=== PATIENT | male | born 1950 | race Caucasian/White ===

== ENCOUNTER 2019-06-27 09:56 | Inpatient (IN) | payer MEDICARE, MEDICAID ==
[~2019-06-27] VITALS: Ht 157.5 cm; Wt 83.9 kg
[2019-06-27] MEDS ORDERED: FAMOTIDINE 20MG/2ML VIAL IV STA (10:56)
[2019-06-27] MEDS ORDERED: MAGNESIUM/ALUMINUM HYDROXIDE/SIMETHICONE 30ML UDC PO STA (10:56)
[2019-06-27] MEDS ORDERED: ONDANSETRON HCL 4MG/2ML INJ IV STA (10:56)
[2019-06-27] MEDS ORDERED: SODIUM CHLORIDE 0.9% 1,000 ML IV ONE (10:56)
[2019-06-27] MEDS ORDERED: VISCOUS LIDOCAINE 2% 15 ML UDC PO STA (10:56)
[2019-06-27 11:21] LABS: BASOPHILS % 0.3 % (0.0-2.0); EOSINOPHILS % 0.2 % (0.0-5.0); HEMATOCRIT. 44.8 % (42.0-52.0); HEMOGLOBIN. 15.1 g/dL (14.0-18.0); LYMPHOCYTES % 16.6 % (20.0-50.0); MEAN CORPUSCULAR HEMOGLOBIN 27.4 pg (28.0-32.0); MEAN CORPUSCULAR VOLUME 81.1 fL (80.0-94.0); MEAN PLATELET VOLUME 9.4 fl (7.4-10.4); MONOCYTES % 9.9 % (2.0-8.0); PLATELET 229 x1000/uL (130-400); RED BLOOD CELL COUNT 5.52 mill/uL (4.7-6.1)
[2019-06-27 11:26] LABS: CHLORIDE 103 mEq/L (98-107); CLARITY URINE CLEAR (CLEAR); COLOR URINE DARK YELLOW (YELLOW); KETONES URINE NEGATIVE (NEGATIVE); LEUKOCYTE ESTERASE URINE TRACE (NEGATIVE); NITRITE URINE POSITIVE (NEGATIVE); OCCULT BLOOD URINE TRACE (NEGATIVE); PROTEIN URINE TRACE (NEGATIVE); SPECIFIC GRAVITY URINE 1.027 (1.005-1.030)
[2019-06-27] MEDS ORDERED: CEFTRIAXONE 1 G PREMIX 50 ML IV ONE (11:30)
[2019-06-27] MEDS ORDERED: ONDANSETRON HCL 4MG/2ML INJ IV PRN (14:00)
[2019-06-27] MEDS ORDERED: MORPHINE SULFATE 2 MG/ML CPJ (NOT FOR IM USE) IV PRN (14:00)
[2019-06-27] MEDS ORDERED: ACETAMINOPHEN 325MG TABLET PO PRN (14:00)
[2019-06-27 14:09] LABS: PROTHROMBIN TIME 10.8 sec (9.6-11.0)
[2019-06-27] MEDS ORDERED: LEVOFLOXACIN 500MG PREMIX 100 ML IV SCH (14:45)
[2019-06-27] MEDS ORDERED: METRONIDAZOLE 500 MG PREMIX 100 ML IV SCH ×2 (14:45→22:00)
[2019-06-27 17:34] VITALS: BP 141/78
[2019-06-27 20:00] VITALS: BP 132/75
[2019-06-27 21:00] VITALS: BP 132/75
[2019-06-27] MEDS: PIPERACILLIN/TAZOBACTAM 3.375 G in DEXT 5% WATER 100 ML IV SCH (21:11)
[2019-06-27 22:11] LABS: INR 1.1; PARTIAL THROMBOPLASTIN TIME 26.5 sec (23.4-31.0); PROTHROMBIN TIME 11.7 sec (9.6-11.0)
[2019-06-28] VITALS: BP 128/70
[2019-06-28 04:00] VITALS: BP 126/71
[2019-06-28] MEDS: PIPERACILLIN/TAZOBACTAM 3.375 G in DEXT 5% WATER 100 ML IV SCH ×3 (04:00→18:50)
[2019-06-28] MEDS: OMEPRAZOLE 20MG CAPSULE EXTENDED RELEASE PO SCH (07:10)
[2019-06-28 07:17] LABS: BASOPHILS % 0.7 % (0.0-2.0); EOSINOPHILS % 2.7 % (0.0-5.0); HEMATOCRIT. 38.3 % (42.0-52.0); HEMOGLOBIN. 12.8 g/dL (14.0-18.0); LYMPHOCYTES % 33.2 % (20.0-50.0); MEAN CORPUSCULAR HEMOGLOBIN 27.2 pg (28.0-32.0); MEAN CORPUSCULAR VOLUME 81.4 fL (80.0-94.0); MEAN PLATELET VOLUME 9.6 fl (7.4-10.4); MONOCYTES % 12.7 % (2.0-8.0); NEUTROPHILS % 50.7 % (40.0-76.0); PLATELET 193 x1000/uL (130-400); RED CELL DISTRIBUTION WIDTH 16.7 % (11.6-14.6)
[2019-06-28 07:30] VITALS: BP 132/70
[2019-06-28 08:10] LABS: HEPATITIS B SURFACE ANTIGEN NEGATIVE
[2019-06-28 08:36] LABS: HEPATITIS A AB IGM NEGATIVE (NEGATIVE)
[2019-06-28 08:41] LABS: CHLORIDE 109 mEq/L (98-107)
[2019-06-28 12:00] VITALS: BP 130/69
[2019-06-28] MEDS ORDERED: SIMETHICONE 40 MG/0.6 ML 30ML ONE (12:33)
[2019-06-28] MEDS ORDERED: IOHEXOL-300 100 ML BOTTLE ONE (12:33)
[2019-06-28] MEDS ORDERED: FENTANYL CITRATE/PF 50MCG/ML 2ML VIAL ONE (15:07)
[2019-06-28] MEDS ORDERED: ROCURONIUM BROMIDE 10MG/ML VIAL 5ML IV ONE (15:07)
[2019-06-28] MEDS ORDERED: MIDAZOLAM HCL 2 MG/2 ML VIAL ONE (15:08)
[2019-06-28] MEDS ORDERED: PROPOFOL 200MG/20ML VIAL IV ONE (15:08)
[2019-06-28] MEDS ORDERED: LIDOCAINE HCL 1% 20ML VIAL (Pyxis) INJ ONE (15:10)
[2019-06-28] MEDS ORDERED: EPHEDRINE SULFATE 50MG/ML VIAL ONE (15:45)
[2019-06-28] MEDS ORDERED: NEOSTIGMINE METHYLSULFATE 1MG/ML 10 ML VIAL ONE (16:09)
[2019-06-28] MEDS ORDERED: GLYCOPYRROLATE 0.2 MG/ML 2ML VIAL ONE (16:09)
[2019-06-28] MEDS ORDERED: METOCLOPRAMIDE HCL 10MG/2ML VIAL IV PRN (16:30)
[2019-06-28] MEDS ORDERED: FENTANYL CITRATE/PF 50MCG/ML 2ML VIAL IV PRN (16:30)
[2019-06-28] MEDS ORDERED: ONDANSETRON HCL 4MG/2ML INJ IV PRN (16:30)
[2019-06-28 18:00] VITALS: BP 133/67
[2019-06-28 20:00] VITALS: BP 118/69
[2019-06-28] MEDS ORDERED: LEVOFLOXACIN 500MG PREMIX 100 ML IV SCH (20:00)
[2019-06-29] VITALS: BP 121/72
[2019-06-29] MEDS: PIPERACILLIN/TAZOBACTAM 3.375 G in DEXT 5% WATER 100 ML IV SCH ×2 (03:05→13:17)
[2019-06-29 04:00] VITALS: BP 115/70
[2019-06-29 07:30] LABS: BASOPHILS % 0.4 % (0.0-2.0); EOSINOPHILS % 1.1 % (0.0-5.0); HEMATOCRIT. 38.1 % (42.0-52.0); HEMOGLOBIN. 12.6 g/dL (14.0-18.0); MEAN CORPUSCULAR HEMOGLOBIN 27.1 pg (28.0-32.0); MEAN CORPUSCULAR VOLUME 81.6 fL (80.0-94.0); MEAN PLATELET VOLUME 9.1 fl (7.4-10.4); MONOCYTES % 9.6 % (2.0-8.0); NEUTROPHILS % 67.9 % (40.0-76.0); PLATELET 194 x1000/uL (130-400); RED BLOOD CELL COUNT 4.66 mill/uL (4.7-6.1); RED CELL DISTRIBUTION WIDTH 16.4 % (11.6-14.6)
[2019-06-29 07:53] LABS: CHLORIDE 107 mEq/L (98-107)
[2019-06-29 08:00] VITALS: BP 134/73
[2019-06-29] MEDS: OMEPRAZOLE 20MG CAPSULE EXTENDED RELEASE PO SCH (08:02)
[2019-06-29 16:00] VITALS: BP 135/78
[2019-06-29 17:48] VITALS: BP 135/78
== END 2019-06-29 18:10 | disposition home or self-care (01) | DRG 872 ==
LOC: ER 09:56 → 8WST 13:49 → EDBEDREQ 13:55 → ENRESERV 15:43 → 6EST 06-29 11:48
PROVIDERS: ADMIT Internal Medicine; ATTEND Internal Medicine
PROC: 0F798ZZ Dilation of Common Bile Duct, Via Natural or Artificial Opening Endoscopic (ICD-10-PCS; principal; 2019-06-28)
PROC: BF101ZZ Fluoroscopy of Bile Ducts using Low Osmolar Contrast (ICD-10-PCS; 2019-06-28)
DX: A41.50 Gram-negative sepsis, unspecified (principal); I10 Essential (primary) hypertension; R74.0 Nonspecific elevation of levels of transaminase and lactic acid dehydrogenase [LDH]; K80.70 Calculus of gallbladder and bile duct without cholecystitis without obstruction
CPT/HCPCS: 36415; 71045; 74181; 74328; 76705; 78227; 80048; 80076; 81003; 82248; 83036; 86705; 86709; 86803; 87186; 87340; 93005; 93970; 96374; 99285; A9537; C1726; C1769; J0696; J1956; J2250; J2270; J2405; J2543; J2704; J2710; J3010; J3490; J7030; J7040; J7060; Q9967

== ENCOUNTER 2019-12-07 18:40 | Inpatient (IN) | payer MEDICARE, MEDICAID ==
[~2019-12-07] VITALS: Ht 165.1 cm; Wt 81.6 kg
[2019-12-07] MEDS ORDERED: KETOROLAC 60MG/2ML VIAL IM ONE (21:15)
[2019-12-07 21:40] LABS: CLARITY URINE CLEAR (CLEAR); COLOR URINE YELLOW (YELLOW); KETONES URINE 1+ (NEGATIVE); LEUKOCYTE ESTERASE URINE NEGATIVE (NEGATIVE); NITRITE URINE NEGATIVE (NEGATIVE); OCCULT BLOOD URINE 1+ (NEGATIVE); PH URINE 5.5 (4.5-8.0); PROTEIN URINE NEGATIVE (NEGATIVE); SPECIFIC GRAVITY URINE 1.016 (1.005-1.030); UROBILINOGEN URINE 0.2 E.U./dL (0.2-1.0)
[2019-12-07 22:30] LABS: BASOPHILS % 0.3 % (0.0-2.0); EOSINOPHILS % 0.1 % (0.0-5.0); HEMATOCRIT. 43.4 % (42.0-52.0); HEMOGLOBIN. 14.8 g/dL (14.0-18.0); LYMPHOCYTES % 14.2 % (20.0-50.0); MEAN CORPUSCULAR HEMOGLOBIN 28.2 pg (28.0-32.0); MEAN CORPUSCULAR VOLUME 82.9 fL (80.0-94.0); MEAN PLATELET VOLUME 8.9 fl (7.4-10.4); MONOCYTES % 9.5 % (2.0-8.0); NEUTROPHILS % 75.9 % (40.0-76.0); PLATELET 236 x1000/uL (130-400); RED BLOOD CELL COUNT 5.23 mill/uL (4.7-6.1); RED CELL DISTRIBUTION WIDTH 15.1 % (11.6-14.6)
[2019-12-07 22:33] LABS: CHLORIDE 105 mEq/L (98-107)
[2019-12-07] MEDS ORDERED: MORPHINE SULFATE 4 MG/ML CPJ (NOT FOR IM USE) IV STA (22:55)
[2019-12-07] MEDS ORDERED: ONDANSETRON HCL 4MG/2ML INJ IV STA (22:55)
[2019-12-07] MEDS ORDERED: SODIUM CHLORIDE 0.9% 1,000 ML IV ONE (22:55)
[2019-12-07 23:28] LABS: AMYLASE 43 IU/L (25-115)
[2019-12-08] MEDS ORDERED: SODIUM CHLORIDE 0.9% 1,000 ML IV SCH (01:07)
[2019-12-08] MEDS ORDERED: ACETAMINOPHEN 325MG TABLET PO PRN (01:15)
[2019-12-08] MEDS ORDERED: ONDANSETRON HCL 4MG/2ML INJ IV PRN (01:15)
[2019-12-08] MEDS ORDERED: PIPERACILLIN/TAZ 3.375G PREMIX 50 ML IV NR (02:00)
[2019-12-08 03:30] VITALS: BP 143/68
[2019-12-08] MEDS ORDERED: LISI10TA5 PO (04:45)
[2019-12-08] MEDS: MORPHINE SULFATE 2 MG/ML CPJ (NOT FOR IM USE) IV PRN ×2 (04:58→19:27)
[2019-12-08 08:00] VITALS: BP 142/68
[2019-12-08 08:43] LABS: BASOPHILS % 0.3 % (0.0-2.0); EOSINOPHILS % 0.2 % (0.0-5.0); HEMATOCRIT. 42.2 % (42.0-52.0); HEMOGLOBIN. 14.3 g/dL (14.0-18.0); LYMPHOCYTES % 11.5 % (20.0-50.0); MEAN CORPUSCULAR HEMOGLOBIN 28.2 pg (28.0-32.0); MEAN CORPUSCULAR VOLUME 83.6 fL (80.0-94.0); MEAN PLATELET VOLUME 8.6 fl (7.4-10.4); MONOCYTES % 12.5 % (2.0-8.0); NEUTROPHILS % 75.5 % (40.0-76.0); PLATELET 207 x1000/uL (130-400); RED BLOOD CELL COUNT 5.05 mill/uL (4.7-6.1); RED CELL DISTRIBUTION WIDTH 15.1 % (11.6-14.6)
[2019-12-08 09:00] LABS: AMYLASE 37 IU/L (25-115)
[2019-12-08] MEDS ORDERED: PIPERACILLIN/TAZ 3.375G PREMIX 50 ML IV SCH (09:00)
[2019-12-08 09:44] LABS: CHLORIDE 108 mEq/L (98-107)
[2019-12-08] MEDS: PIPERACILLIN/TAZOBACTAM 3.375 G in DEXT 5% WATER 100 ML IV SCH ×3 (09:48→21:02)
[2019-12-08] MEDS ORDERED: INFLUENZA VIRUS VACCINE(AFLURIA) 0.5ML SYR IM ONE (10:00)
[2019-12-08] MEDS ORDERED: BACTERIOSTATIC SODIUM CHLORIDE 0.9% 30ML VIAL IJ ONE (11:40)
[2019-12-08 12:00] VITALS: BP 136/71
[2019-12-08] MEDS ORDERED: MIDAZOLAM HCL 5 MG/5 ML VIAL ONE ×2 (13:17→13:18)
[2019-12-08] MEDS ORDERED: MIDAZOLAM HCL 5 MG/5 ML VIAL IV PRN (13:18)
[2019-12-08] MEDS ORDERED: FENTANYL CITRATE/PF 50MCG/ML 2ML VIAL ONE (13:18)
[2019-12-08] MEDS ORDERED: FENTANYL CITRATE/PF 50MCG/ML 2ML VIAL IV PRN (13:18)
[2019-12-08 16:00] VITALS: BP 133/79
[2019-12-08] MEDS: PANTOPRAZOLE SODIUM 40 MG/VIAL IV SCH (16:29)
[2019-12-08] MEDS: ACETAMINOPHEN 500MG TABLET PO PRN (19:28)
[2019-12-08 20:00] VITALS: BP 139/85
[2019-12-09] VITALS: BP 150/84
[2019-12-09] MEDS: MORPHINE SULFATE 2 MG/ML CPJ (NOT FOR IM USE) IV PRN ×4 (00:03→20:12)
[2019-12-09] MEDS: PIPERACILLIN/TAZOBACTAM 3.375 G in DEXT 5% WATER 100 ML IV SCH ×4 (03:04→20:30)
[2019-12-09 04:00] VITALS: BP 146/81
[2019-12-09] MEDS: PANTOPRAZOLE SODIUM 40 MG/VIAL IV SCH ×2 (05:22→19:02)
[2019-12-09 07:30] LABS: HEMATOCRIT. 41.4 % (42.0-52.0); HEMOGLOBIN. 14.3 g/dL (14.0-18.0); MEAN CORPUSCULAR HEMOGLOBIN 28.6 pg (28.0-32.0); MEAN CORPUSCULAR VOLUME 83.2 fL (80.0-94.0); MEAN PLATELET VOLUME 8.8 fl (7.4-10.4); PLATELET 209 x1000/uL (130-400); RED BLOOD CELL COUNT 4.98 mill/uL (4.7-6.1); RED CELL DISTRIBUTION WIDTH 14.7 % (11.6-14.6)
[2019-12-09 07:41] LABS: CHLORIDE 103 mEq/L (98-107)
[2019-12-09 08:00] VITALS: BP 125/79
[2019-12-09 09:09] LABS: PLATELET ESTIMATE NORMAL
[2019-12-09] MEDS: ACETAMINOPHEN 500MG TABLET PO PRN ×2 (10:30→16:00)
[2019-12-09 12:00] VITALS: BP 90/49
[2019-12-09 16:00] VITALS: BP 108/66
[2019-12-09 19:51] LABS: CHLORIDE 102 mEq/L (98-107); HEMATOCRIT. 38.7 % (42.0-52.0); HEMOGLOBIN. 13.1 g/dL (14.0-18.0); MEAN CORPUSCULAR VOLUME 82.8 fL (80.0-94.0); PLATELET 203 x1000/uL (130-400); RED BLOOD CELL COUNT 4.67 mill/uL (4.7-6.1); RED CELL DISTRIBUTION WIDTH 14.8 % (11.6-14.6)
[2019-12-09 19:56] LABS: AMYLASE 25 IU/L (25-115)
[2019-12-09 20:00] VITALS: BP 100/58
[2019-12-09 20:53] LABS: PLATELET ESTIMATE NORMAL
[2019-12-10] VITALS (30 sets, daily range): BP systolic 93–149; BP diastolic 27–94
[2019-12-10] MEDS: PIPERACILLIN/TAZOBACTAM 3.375 G in DEXT 5% WATER 100 ML IV SCH (02:43)
[2019-12-10] MEDS: MORPHINE SULFATE 2 MG/ML CPJ (NOT FOR IM USE) IV PRN ×2 (03:59→10:53)
[2019-12-10] MEDS: PANTOPRAZOLE SODIUM 40 MG/VIAL IV SCH ×2 (05:24→19:35)
[2019-12-10 06:41] LABS: BASOPHILS % 0.2 % (0.0-2.0); EOSINOPHILS % 0.4 % (0.0-5.0); HEMOGLOBIN. 12.5 g/dL (14.0-18.0); LYMPHOCYTES % 7.1 % (20.0-50.0); MEAN CORPUSCULAR VOLUME 82.7 fL (80.0-94.0); MEAN PLATELET VOLUME 8.8 fl (7.4-10.4); MONOCYTES % 9.1 % (2.0-8.0); NEUTROPHILS % 83.2 % (40.0-76.0); PLATELET 204 x1000/uL (130-400); RED BLOOD CELL COUNT 4.47 mill/uL (4.7-6.1)
[2019-12-10 06:55] LABS: CHLORIDE 105 mEq/L (98-107)
[2019-12-10] MEDS ORDERED: SKIN ADHESIVE 0.7 GM EA TOP ONE (07:41)
[2019-12-10] MEDS ORDERED: LIDOCAINE HCL 1% 20ML VIAL (Pyxis) INJ ONE (07:41)
[2019-12-10] MEDS ORDERED: BUPIVACAINE HCL/PF 0.5% (5MG/ML) 10ML ONE (07:41)
[2019-12-10] MEDS ORDERED: SODIUM CHLORIDE 0.9% 1,000 ML IV ONE (07:51)
[2019-12-10] MEDS ORDERED: MORPHINE SULFATE 2 MG/ML CPJ (NOT FOR IM USE) IV PRN (08:00)
[2019-12-10] MEDS ORDERED: ONDANSETRON HCL 4MG/2ML INJ IV PRN (08:00)
[2019-12-10] MEDS ORDERED: HYDROMORPHONE HCL/PF 2MG/ML CPJ IV PRN (08:00)
[2019-12-10] MEDS ORDERED: MEPERIDINE HCL/PF 25MG/ML CPJ IV PRN ×2 (08:00)
[2019-12-10] MEDS ORDERED: PROPOFOL 200MG/20ML VIAL IV ONE (08:17)
[2019-12-10] MEDS ORDERED: FENTANYL CITRATE/PF 50MCG/ML 2ML VIAL ONE ×3 (08:17→09:29)
[2019-12-10] MEDS ORDERED: ROCURONIUM BROMIDE 10MG/ML VIAL 5ML IV ONE ×2 (08:17→09:27)
[2019-12-10] MEDS ORDERED: MIDAZOLAM HCL 2 MG/2 ML VIAL ONE ×2 (08:17→09:51)
[2019-12-10] MEDS ORDERED: CEFAZOLIN SODIUM 1000MG/VIAL ONE (08:17)
[2019-12-10] MEDS ORDERED: SODIUM CHLORIDE 0.9% 10ML VIAL ONE (08:17)
[2019-12-10] MEDS ORDERED: ONDANSETRON HCL 4MG/2ML INJ ONE (08:17)
[2019-12-10] MEDS ORDERED: SUCCINYLCHOLINE CHLORIDE 200MG/10ML IV ONE (08:17)
[2019-12-10] MEDS ORDERED: GLYCOPYRROLATE 0.2 MG/ML 2ML VIAL ONE (08:17)
[2019-12-10] MEDS ORDERED: METOCLOPRAMIDE HCL 10MG/2ML VIAL ONE (08:17)
[2019-12-10] MEDS ORDERED: NEOSTIGMINE METHYLSULFATE 1MG/ML 10 ML VIAL ONE (08:17)
[2019-12-10] MEDS ORDERED: LIDOCAINE HCL/PF 1% 10 MG/ML 5ML VIAL ONE (08:17)
[2019-12-10] MEDS ORDERED: BACITRACIN 50,000 UNITS/VIAL ONE (09:02)
[2019-12-10 10:28] LABS: BG BASE EXCESS -5.8 mmol/L (-2.0-2.0); BG CARBOXYHEMOGLOBIN 0.3 % (0.5-1.5); BG DEOXYHEMOGLOBIN 1.2 % (0.0-5.0); BG HCO3 ACT 19.7 mmol/L (22.0-26.0); BG METHEMOGLOBIN 0.2 % (0.0-1.5); BG OXYGEN SATURATION 98.8 % (92.0-98.5); BG OXYHEMOGLOBIN 98.3 % (94.0-97.0); BG PCO2 38.9 mmHg (35.0-45.0); BG PH 7.323 (7.350-7.450); BG PO2 188.9 mmHg (75.0-100.0); BG SAMPLE SITE RIGHT BRACHIAL; BG TIDAL VOLUME(mL) 600 mL; BG TOTAL HEMOGLOBIN 12.5 g/dL (12.0-18.0); BG VENT MODE VENT - A/C; BG VENT RATE 12 set
[2019-12-10] MEDS: KETOROLAC 30MG/ML VIAL IV SCH ×3 (13:58→23:29)
[2019-12-10] MEDS: HYDROMORPHONE HCL/PF 2MG/ML CPJ IV PRN (13:59)
[2019-12-10] MEDS: DEXT 5%/0.45% NACL KCL 20MEQ/L 1,000 ML IV SCH ×2 (15:00→22:32)
[2019-12-10] MEDS ORDERED: IPRATROPIUM/ALBUTEROL 0.5-3(2.5)MG/3ML NEB HHN PRN (22:45)
[2019-12-11] VITALS (58 sets, daily range): BP systolic 96–142; BP diastolic 53–99
[2019-12-11] MEDS: PIPERACILLIN/TAZOBACTAM 3.375 G in DEXT 5% WATER 100 ML IV SCH ×4 (00:46→17:36)
[2019-12-11] MEDS: HYDROMORPHONE HCL/PF 2MG/ML CPJ IV PRN (01:05)
[2019-12-11 05:26] LABS: BASOPHILS % 0.1 % (0.0-2.0); EOSINOPHILS % 0.7 % (0.0-5.0); HEMATOCRIT. 32.4 % (42.0-52.0); HEMOGLOBIN. 11.1 g/dL (14.0-18.0); LYMPHOCYTES % 13.8 % (20.0-50.0); MEAN CORPUSCULAR HEMOGLOBIN 28.7 pg (28.0-32.0); MEAN CORPUSCULAR VOLUME 83.6 fL (80.0-94.0); MEAN PLATELET VOLUME 8.4 fl (7.4-10.4); MONOCYTES % 9.4 % (2.0-8.0); PLATELET 209 x1000/uL (130-400); RED BLOOD CELL COUNT 3.87 mill/uL (4.7-6.1); RED CELL DISTRIBUTION WIDTH 15.2 % (11.6-14.6)
[2019-12-11 05:27] LABS: CHLORIDE 109 mEq/L (98-107)
[2019-12-11] MEDS: PANTOPRAZOLE SODIUM 40 MG/VIAL IV SCH ×2 (05:49→17:36)
[2019-12-11] MEDS: KETOROLAC 30MG/ML VIAL IV SCH ×3 (05:49→17:37)
[2019-12-11] MEDS: DEXT 5%/0.45% NACL KCL 20MEQ/L 1,000 ML IV SCH ×2 (08:05→17:36)
[2019-12-11] MEDS ORDERED: KETOROLAC 30MG/ML VIAL IV PRN (19:00)
[2019-12-12] VITALS: BP 130/85
[2019-12-12] MEDS: PIPERACILLIN/TAZOBACTAM 3.375 G in DEXT 5% WATER 100 ML IV SCH ×3 (00:32→12:07)
[2019-12-12 04:00] VITALS: BP 156/90
[2019-12-12] MEDS: DEXT 5%/0.45% NACL KCL 20MEQ/L 1,000 ML IV SCH (04:46)
[2019-12-12] MEDS: PANTOPRAZOLE SODIUM 40 MG/VIAL IV SCH (05:39)
[2019-12-12] MEDS: HYDROMORPHONE HCL/PF 2MG/ML CPJ IV PRN (05:40)
[2019-12-12 07:25] LABS: BG SAMPLE SITE Right Radial; BG VENT MODE VENT-CPAP
[2019-12-12 07:26] LABS: BG FRACTION INSPIRED OXYGEN 50; BG PCO2 38.9 mmHg (35.0-45.0); BG PH 7.374 (7.350-7.450); BG PRESSURE SUPPORT 8
[2019-12-12 07:27] LABS: BG BASE EXCESS -2.7 mmol/L (-2.0-2.0); BG CARBOXYHEMOGLOBIN 0.5 % (0.5-1.5); BG HCO3 ACT 22.2 mmol/L (22.0-26.0); BG METHEMOGLOBIN 0.2 % (0.0-1.5); BG OXYGEN SATURATION 98.5 % (92.0-98.5); BG OXYHEMOGLOBIN 97.8 % (94.0-97.0); BG PO2 129.2 mmHg (75.0-100.0); BG TOTAL HEMOGLOBIN 13.6 g/dL (12.0-18.0)
[2019-12-12 07:28] LABS: BG DEOXYHEMOGLOBIN 1.5 % (0.0-5.0)
[2019-12-12 08:00] VITALS: BP 140/81
[2019-12-12 12:00] VITALS: BP 156/96
[2019-12-12] MEDS ORDERED: TRAM50TA3 MT (15:58)
[2019-12-12] MEDS ORDERED: AMOX-424 MT (16:00)
== END 2019-12-12 16:28 | disposition home or self-care (01) | DRG 853 ==
LOC: ER 18:40 → 7WST 12-08 00:50 → ENRESERV 12-08 01:56 → CANRESERV 12-08 01:56 → EDBEDREQSVC 12-08 02:03 → ENRESERV 12-08 02:43 → MICUNO 12-10 13:03 → 6EST 12-11 19:45
PROVIDERS: ADMIT Internal Medicine; ATTEND Internal Medicine
PROC: 0DB78ZX Excision of Stomach, Pylorus, Via Natural or Artificial Opening Endoscopic, Diagnostic (ICD-10-PCS; 2019-12-08)
PROC: 0FT44ZZ Resection of Gallbladder, Percutaneous Endoscopic Approach (ICD-10-PCS; principal; 2019-12-10)
DX: A41.9 Sepsis, unspecified organism (principal); J18.9 Pneumonia, unspecified organism; K65.9 Peritonitis, unspecified; J96.01 Acute respiratory failure with hypoxia; K80.00 Calculus of gallbladder with acute cholecystitis without obstruction; K29.70 Gastritis, unspecified, without bleeding; I10 Essential (primary) hypertension; J84.10 Pulmonary fibrosis, unspecified; K44.9 Diaphragmatic hernia without obstruction or gangrene; N43.3 Hydrocele, unspecified; Z78.1 Physical restraint status
CPT/HCPCS: 36415; 36600; 71045; 74176; 76705; 80048; 80053; 80076; 81003; 82150; 82375; 82805; 83605; 83880; 84145; 85025; 86850; 86900; 87420; 87804; 88304; 88305; 88312; 88313; 90686; 93005; 94002; 97116; 97162; 99285; C9113; J0330; J0690; J1170; J1885; J2250; J2270; J2405; J2543; J2704; J2710; J2765; J3010; J3490; J7030; J7060